=== PATIENT | female | born 1975 | race Caucasian/White ===

== ENCOUNTER 2016-11-17 08:21 | Inpatient (IN) | payer OTHER ==
[~2016-11-17] VITALS: Ht 165.1 cm; Wt 95.3 kg
[2016-11-17 08:48] VITALS: BP 128/82
[2016-11-17 10:11] LABS: ABSOLUTE BASOPHIL COUNT 0 /CUMM (0.0-0.2); ABSOLUTE EOSINOPHIL COUNT 0.1 /CUMM (0.0-0.7); ABSOLUTE GRANULOCYTE CT 7.1 /CUMM (1.4-6.5); ABSOLUTE MONOCYTE COUNT 0.7 /CUMM (0.10-0.60); BASOPHIL % 0.4 % (0.0-2.0); EOSINOPHIL % 0.7 % (0-5); GRANULOCYTE % 71.9 % (42.2-75.2); HEMATOCRIT 38.8 % (37-47); MEAN CORPUSCULAR HGB 31.6 PG (27.0-31.0); MEAN CORPUSCULAR HGB CONC 34.2 G/DL (33.0-37.0); MEAN CORPUSCULAR VOLUME 92.3 FL (81.0-99.0); MEAN PLATELET VOLUME 10.1 FL (7.4-10.4); PLATELET COUNT 175 /CUMM (130-400); RBC DISTRIBUTION WIDTH 12.6 % (11.5-14.5); RED BLOOD CELL CT 4.21 /CUMM (4.20-5.40); WHITE BLOOD CELL COUNT 9.8 /CUMM (4.8-10.8)
--- NOTE | 2016-11-17 19:11 | PN- Obstetrical ---
Subjective Subjective: no c/o s/p epidural Review of Systems: AROM 50min ago reveals bloody fluid. Rpt exan unchanged with increased blood. Objective Last 24 Hrs of Vital Signs/I&O Vital Signs Date Time Temp Pulse Resp B/P Pulse O2 O2 Flow FiO2 Ox Delivery Rate 11/17 0848 128/82 Intake & Output 11/17 1600 11/17 0800 11/17 0000 Intake Total Output Total Balance Patient 210 lb Weight Obstetric Exam Dilation (cm): 3 Effacement (%): 80 Station: -2 Membranes: AROM Fluid: heavy vaginal bleed Multiple Gestation? No Contractions: q2 Assessment/Plan Assessment/Plan IOL 39+ weeks AROM bloody fluid no cervical change and bloody amniotic fluid persisits probable placental abruption primary c section; pt agrees Problem List: 1.
--- NOTE | 2016-11-17 19:14 | History & Physical ---
General Information and HPI MD Statement: I have seen and personally examined MARIAELENA PETE and documented this H&P. The patient is a 41 year old female at [39] weeks and [3] days gestation who presented with a chief complaint of [IOL due to history of precipitous labor]. Source of Information: police History of Present Illness: Pt is a 41yo lmp 09/03/16 edc 11/21/16 by 7 week ultrasound for IOL due to history of precipitous labor at home. care complete and significant for AMA amd FOB not involved. Cervix is 2cm dilated on arrival. 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 EENTM: Reports: no symptoms. Cardiovascular: Reports: no symptoms. Respiratory: Reports: no symptoms. GI: Reports: no symptoms. Genitourinary: Reports: no symptoms. Musculoskeletal: Reports: no symptoms. Skin: Reports: no symptoms. Neurological/Psychological: Reports: no symptoms. Hematologic/Endocrine: Reports: no symptoms. Immunologic/Allergic: Reports: no symptoms. All Other Systems: Reviewed and Negative Exam & Diagnostic Data Last 24 Hrs of Vital Signs/I&O Vital Signs Date Time Temp Pulse Resp B/P Pulse O2 O2 Flow FiO2 Ox Delivery Rate 11/17 0848 128/82 Intake & Output 11/17 1600 11/17 0800 11/17 0000 Intake Total Output Total Balance Patient 210 lb Weight Obstetric Exam Wgt Gained During : 55 Pelvimetry: gynecoid Dilation (cm): 2 Effacement (%): 80 Station: -2 Membranes: intact Fluid: unknown Fundal Height (cm): 41 Multiple Gestation? No Contractions: none #1 - FHR Baseline: 135 Category: 1 Estimated Weight: 8 Presentation: cephalic Patient for Induction? Yes Ross Score Ross Score Response Value Cervix Position: posterior 0 Cervix Consistency: soft 2 Cervix Effacement: >80% 3 Cervix Dilation: 1-2 cm 1 Cervix Station: -2 1 Total 7 Physical Exam: HEENT: NCAT Chest: CTA CV: nl S1S2 ext: no c/c/e Labs Blood Type & Rh: O pos Antibody Screen: neg Hct/Hgb & Platelets #1: Hct/Hgb & Platelets #2: Rubella: imm VDRL #1: nr VDRL #2: nr HbsAg: neg HIV #1: neg HIV #2 neg 1 Hr P Group B Strep: positive Initial Ultrasound: wnl Anatomy Ultrasound: wnl Ultrasound for EFW: 7-1 Genetic Testing: neg Last 24 Hrs of Labs/Jf: Laboratory Tests 11/17/16 0810: CBC w Diff NO MAN DIFF REQ, RBC 4.21, MCV 92.3, MCH 31.6 H, RDW 12.6, MPV 10.1, Gran % 71.9, Lymphocytes % 20.1 L, Monocytes % 6.9, Eosinophils % 0.7, Basophils % 0.4, Absolute Granulocytes 7.1 H, Absolute Lymphocytes 2.0, Absolute Monocytes 0.7 H, Absolute Eosinophils 0.1, Absolute Basophils 0, PUBS MCHC 34.2, Urinalysis LIGHT H, Urine Color ORANG H, Urine Clarity HAZY H, Urine pH 6.0, Ur Specific [place] >= 1.030, Urine Protein 30 H, Urine Ketones NEG, Urine Nitrite NEG, Urine Bilirubin NEG@ICTO, Urine Urobilinogen 0.2, Ur Leukocyte Esterase NEG, Ur Microscopic SEDIMENT EXAMINED, Urine RBC RARE, Urine WBC 1-3 H, Ur Epithelial Cells MANY H, Urine Bacteria MANY H, Urine Mucus FEW , Urine Hemoglobin NEG, Urine Glucose NEG Microbiology 11/17 1900 URINE ROUT: Urine Culture - COLB 11/17 1825 URINE ROUT: Urine Culture - COLB Assessment/Plan Assessment/Plan: IOL +GBS IV PCN Pitocin As Ranked By This Provider Problem List: 1. Core Measures/Miscellaneous Venous Thromboembolism VTE Risk Factors: / VTE Contraindications: No Contraindications VTE Diagnosis: No Beta Renu Is Beta Renu a Home Med? No Antibiotics Is Patient on Antibiotics? Yes
--- NOTE | 2016-11-17 20:50 | Labor & Delivery Summary ---
Delivery Summary Section: Section: primary Indication: placental abruption Placenta: Placenta: abnormal Anesthesia: epidural Cord PH Value: 7.34 Baby's Weight: 7-15 Apgars - 1 Min: 9 Apgars - 5 Min: 9
[2016-11-18 09:19] LABS: ABSOLUTE BASOPHIL COUNT 0 /CUMM (0.0-0.2); ABSOLUTE EOSINOPHIL COUNT 0 /CUMM (0.0-0.7); ABSOLUTE GRANULOCYTE CT 10.9 /CUMM (1.4-6.5); ABSOLUTE MONOCYTE COUNT 0.9 /CUMM (0.10-0.60); BASOPHIL % 0.3 % (0.0-2.0); EOSINOPHIL % 0.1 % (0-5); GRANULOCYTE % 79.1 % (42.2-75.2); HEMATOCRIT 34.2 % (37-47); MEAN CORPUSCULAR HGB 31.6 PG (27.0-31.0); MEAN CORPUSCULAR HGB CONC 33.7 G/DL (33.0-37.0); MEAN CORPUSCULAR VOLUME 93.7 FL (81.0-99.0); MEAN PLATELET VOLUME 10.6 FL (7.4-10.4); PLATELET COUNT 155 /CUMM (130-400); RBC DISTRIBUTION WIDTH 12.6 % (11.5-14.5); RED BLOOD CELL CT 3.65 /CUMM (4.20-5.40); WHITE BLOOD CELL COUNT 13.7 /CUMM (4.8-10.8)
--- NOTE | 2016-11-18 11:44 | PN- Post Delivery/GYN ---
Subjective Subjective: NO C/O Review of Systems: NEG Objective Last 24 Hrs of Vital Signs/I&O VSS Physical Exam: INCISION C/D/I EXT NT Assessment/Plan Assessment/Plan S/P C/S POD1 STBLE DISCONTINUE FITZPATRICK ADVANCE DIET INCREASE ACTIVITY Problem List: 1.
--- NOTE | 2016-11-19 13:03 | Operative Report ---
Operative/Inv Procedure Report Surgery Date: 11/17/16 Name of Procedure: Primary section Pre-Operative Diagnosis: Probable placental abruption Post-Operative Diagnosis: Same Estimated Blood Loss: 650 mL Surgeon/Coil Winder Strap: LAMONTE BAILEY MD,JUDITH Santos M.D. Anesthesia: epidural Operative/Procedure Note Note: The patient was brought to the operating room placed on the OR table in the dorsal supine position. Her epidural anesthesia was reinforced and tested. Venodyne boots were placed on the lower extremities and the abdomen was prepped and draped in the usual sterile fashion. A Thomas catheter had previously been placed was draining clear yellow urine. The skin was tested and noted to be anesthetized. A Pfannenstiel skin incision was made with the scalpel and carried down to the layer of the fascia. The fascia was nicked in the midline and extended bilaterally. The underlying rectus muscles were sharply dissected off of the overlying rectus fascia using curved Morris scissors. The rectus muscles were then in the midline and the peritoneal cavity was entered sharply. The peritoneal lining was transected and a [place] bladder blade was inserted to protect the bladder from the operative field. A bladder flap was created using Metzenbaum scissors and placed behind the bladder blade. A low transverse uterine incision was made with the scalpel and the cavity was entered clear fluid was noted at this point. A liveborn female infant was delivered atraumatically and handed off to the waiting lead care manager. Approximately 25% the placenta delivered spontaneously through the uterine incision. The remainder of the placenta was removed with traction. The uterus was exteriorized and wiped clean with a wet lap sponge. It was closed in 2 layers of 0 Polysorb, the second imbricating the first. Fallopian tubes and ovaries appeared normal. The abdomen and pelvis were copiously irrigated and the uterus was placed back into the abdominal cavity. The peritoneum was closed using 2-0 Polysorb in a running nonlocking fashion. Rectus muscles were reapproximated using 2 interrupted sutures of 0 Polysorb. The rectus fascia was closed using 0 Polysorb in a running nonlocking fashion. Subcutaneous tissues were irrigated and coagulated were needed. There were closed with a running suture of 20 plain suture material and the skin was closed using 4-0 Biosyn on a Tommy needle. A dry sterile dressing was applied to the wound patient was transferred to recovery in good condition. All needle, sponge, and instrument counts were correct at the end of the procedure 2.
[2016-11-20] MEDS ORDERED: DOCUSATE SODIU100 M3 PO (10:42)
[2016-11-20] MEDS ORDERED: PERCOCET 5-3251 EACH PO (10:42)
[2016-11-20] MEDS ORDERED: IBUPROFEN800 M1 PO (10:42)
--- NOTE | 2016-12-06 13:36 | Surgical Discharge Summary ---
Visit Information Visit Dates Admission Date: 11/17/16 Discharge Date: 11/20/16 History of Present Illness Chief Complaint: Placental abruption Surgical History Pertinent Surgical History: D&C Psychosocial History What is Your Primary Language? Persian Review of Systems: Negative Hospital Course Course Attending Physician: JUDITH DAVENPORT MD Primary Care Physician: PATIENT HAS NO PRIMARY CARE DR Hospital Course: The patient was admitted for labor and did not progress past 2 cm. Upon her artificial rupture of membranes blood-tinged fluid was noted. This continued for an hour after rupture and placental abruption was diagnosed and she was sent for repeat section. Was delivered and sent to recovery in good condition. The baby did fine. On postoperative day #1 her Thomas was discontinued diet was advance activity was increased vital signs are stable and her hemoglobin was stable. A #2 the patient continued to do well was breast- feeding ambulating and voiding. Day #3 she was tolerating regular diet and was discharged home in good condition. Allergies: Coded Allergies: NO KNOWN ALLERGIES (11/17/16) Disposition Summary Disposition Principal Diagnosis: Placental abruption and labor Additional Diagnosis: Status post Discharge Disposition: home or self care Discharge Instructions General Discharge Information Code Status: Full Code Patient's Diet: Regular Patient's Activity: Pelvic rest with weight restriction Follow-Up Instructions/Appts: [address] Davenport Medications at Discharge Discharge Medications: Start taking the following new medications: Ibuprofen (Ibuprofen) 800 MG TABLET 800 Milligram ORAL EVERY SIX HOURS NEEDED as needed for UTERINE CRAMPING Qty = 30 No Refills Comments: Last Taken:11/20/16 Time:1105 Oxycodone HCl/Acetaminophen (Percocet 5-325 MG Tablet) 5 MG-325 MG TABLET 1 Tablet ORAL EVERY 4 HOURS NEEDED as needed for PAIN SCALE 4-6 (MODERATE ) Qty = 16 No Refills Comments: Last Taken:11/19/16 Time:1010 Docusate Sodium (Docusate Sodium) 100 MG CAPSULE 100 Milligram ORAL AT BEDTIME as needed for STOOL SOFTENER Qty = 60 No Refills Comments: Last Taken:11/19/16 Time:1900
== END 2016-11-20 12:00 | DRG 540 ==
LOC: GNO 08:21
PROVIDERS: ADMIT Obstetrics & Gynecology
PROC: 10D00Z1 Extraction of Products of Conception, Low, Open Approach (ICD-10-PCS; principal; 2016-11-17)
DX: O45.93 Premature separation of placenta, unspecified, third trimester (principal); Z3A.39 39 weeks gestation of pregnancy; Z37.0 Single live birth; O09.523 Supervision of elderly multigravida, third trimester
CPT/HCPCS: GNOS; 36415; 81001; 87086; 88307; J0690; J1200; J1650; J1885; J7120